=== PATIENT | male | born 1970 | race Caucasian/White ===

== ENCOUNTER 2019-01-30 22:02 | Emergency (ER) | payer BC ==
[~2019-01-30] VITALS: Ht 172.7 cm; Wt 81.8 kg
[2019-01-30] MEDS ORDERED: ATOR1TAB21 (22:18)
[2019-01-30] MEDS ORDERED: TETRACAINE 0.5% OPHTH SOLN 4ML OU ONE (23:00)
[2019-01-30] MEDS ORDERED: ADACEL/BOOSTRIX VACCINE (DIPHTH/PERTUSS/ACELL/TETANUS)0.5ML SYR (90715) IM ONE (23:00)
[2019-01-30] MEDS ORDERED: FLUORESCEIN OPHTH 1 MG STRIP OU ONE (23:00)
[2019-01-31] MEDS ORDERED: TOBRSUS41 OU (00:14)
[2019-01-31] MEDS ORDERED: TOBRADEX OPHTH SUSP 2.5 ML OU ONE (00:30)
[2019-01-31 00:46] VITALS: BP 134/87
== END 2019-01-31 00:42 | disposition home or self-care (01) ==
LOC: M ED 22:02
DX: H16.8 Other keratitis (principal); S05.00XA Injury of conjunctiva and corneal abrasion without foreign body, unspecified eye, initial encounter; X58.XXXA Exposure to other specified factors, initial encounter; Y92.89 Other specified places as the place of occurrence of the external cause; E78.5 Hyperlipidemia, unspecified; Z87.891 Personal history of nicotine dependence

== ENCOUNTER → 2019-02-28 | Outpatient (CLI) | payer BC ==
[~2019-02-28] MED LIST: ATOR1TAB21; TOBRSUS41 OU
[2019-02-28 13:27] LABS: ALBUMIN 4.1 GM/DL (3.2-5.2); BILIRUBIN,DIRECT 0.2 MG/DL (0.0-0.2); BILIRUBIN,TOTAL 0.7 MG/DL (0.2-1.0); TOTAL PROTEIN 7.5 GM/DL (6.4-8.2)
== END ==
LOC: M WUC 08:31
DX: B35.1 Tinea unguium (principal)

== ENCOUNTER → 2021-10-27 | Outpatient (CLI) | payer BC ==
[2021-10-27 16:19] LABS: BASO % 0.7 % (0.0-1.0); EOS # 0.2 10^3/uL (0.0-0.5); EOS % 3.3 % (0.0-3.0); HEMATOCRIT 42.1 % (42.0-52.0); HEMOGLOBIN 13.9 g/dl (13.5-17.5); LYMPH # 1.7 10^3/uL (1.5-5.0); MEAN CORPUSCULAR HEMOGLOBIN 28.5 pg (27.0-33.0); MEAN CORPUSCULAR VOLUME 86.4 fl (80.0-96.0); MONO # 0.7 10^3/uL (0.0-0.8); MONO % 12.4 % (2.0-8.0); NEUTROPHILS # 2.8 10^3/uL (1.5-8.5); NEUTROPHILS % 51.2 % (36.0-66.0); PLATELET COUNT, AUTOMATED 272 10^3/uL (150-450); RED BLOOD COUNT 4.87 10^6/uL (4.30-6.10); WHITE BLOOD COUNT 5.4 10^3/uL (4.0-10.0)
[2021-10-27 16:41] LABS: ALBUMIN 4.3 GM/DL (3.2-5.2); BILIRUBIN,DIRECT 0.2 MG/DL (0.0-0.2); BILIRUBIN,TOTAL 0.7 MG/DL (0.2-1.0); CALCIUM LEVEL 9.1 MG/DL (8.5-10.1); CREATININE FOR GFR 1.48 MG/DL (0.70-1.30); PHOSPHORUS LEVEL 3.7 MG/DL (2.5-4.9); POTASSIUM SERUM 4.2 MEQ/L (3.5-5.1); TOTAL PROTEIN 7.3 GM/DL (6.4-8.2)
== END ==
LOC: M WUC 13:55
PROVIDERS: ATTEND Podiatrist Foot & Ankle Surgery
DX: B35.1 Tinea unguium (principal); Z79.899 Other long term (current) drug therapy

== ENCOUNTER → 2021-11-13 | Outpatient (CLI) | payer BC | LOC: M WUC 11:49 | PROVIDERS: ATTEND Physician Assistant | DX: M25.512 Pain in left shoulder (principal) ==

== ENCOUNTER → 2022-09-06 | Outpatient (CLI) | payer BC ==
[2022-09-06 16:21] LABS: BASO # 0.1 10^3/uL (0.0-0.2); EOS # 0.2 10^3/uL (0.0-0.5); HEMATOCRIT 43.3 % (42.0-52.0); HEMOGLOBIN 14.3 g/dl (13.5-17.5); LYMPH # 1.8 10^3/uL (1.5-5.0); LYMPH % 28.3 % (24.0-44.0); MEAN CORPUSCULAR HEMOGLOBIN 28.5 pg (27.0-33.0); MEAN CORPUSCULAR VOLUME 86.3 fl (80.0-96.0); MONO # 0.6 10^3/uL (0.0-0.8); MONO % 9.4 % (2.0-8.0); NEUTROPHILS # 3.7 10^3/uL (1.5-8.5); PLATELET COUNT, AUTOMATED 334 10^3/uL (150-450); RED BLOOD COUNT 5.02 10^6/uL (4.30-6.10); WHITE BLOOD COUNT 6.3 10^3/uL (4.0-10.0)
[2022-09-06 16:38] LABS: ALBUMIN 4.5 G/DL (3.2-5.2); ALKALINE PHOSPHATASE 80 U/L (46-116); ALT/SGPT 42 U/L (7.0-40); AST/SGOT 26 U/L (<34); BILIRUBIN,DIRECT 0.2 MG/DL (<0.4); BILIRUBIN,TOTAL 0.6 MG/DL (0.3-1.2); TOTAL PROTEIN 7.4 G/DL (5.7-8.2)
[2022-09-07 08:32] LABS: BLOOD UREA NITROGEN 23 MG/DL (9-23); CALCIUM LEVEL 9.1 MG/DL (8.5-10.1); CARBON DIOXIDE LEVEL 29 MMOL/L (20-31); CHLORIDE LEVEL 102 MMOL/L (98-107); CREATININE FOR GFR 1.26 MG/DL (0.70-1.30); GLOMERULAR FILTRATION RATE > 60.0 (>60); GLUCOSE, FASTING 92 MG/DL (60-100); PHOSPHORUS LEVEL 4.3 MG/DL (2.5-4.9); POTASSIUM SERUM 4.7 MMOL/L (3.5-5.1); SODIUM LEVEL 141 MMOL/L (136-145)
== END ==
LOC: M WUC 14:52
PROVIDERS: ATTEND Podiatrist Foot & Ankle Surgery
DX: B35.1 Tinea unguium (principal)

== ENCOUNTER 2024-04-12 07:00 | Day surgery (SDC) | payer BC ==
[~2024-04-12] VITALS: Ht 172.7 cm; Wt 83.8 kg
[~2024-04-12 07:00] MED LIST changes: +ATOR40TA75 PO; +SUPETAB PO
[2024-04-12] MEDS: NS 1,000 ML IV ONE (07:18)
[2024-04-12] MEDS ORDERED: propofoL 200 MG/20 ML VIAL As Ordered ONE (08:01)
[2024-04-12 08:13] VITALS: TEMP 97.8
[2024-04-12 08:30] VITALS: BP 138/87; O2SAT 98
== END 2024-04-12 08:41 | disposition home or self-care (01) ==
LOC: M OPP 07:00
PROVIDERS: ATTEND Surgery
DX: Z12.11 Encounter for screening for malignant neoplasm of colon (principal); D12.6 Benign neoplasm of colon, unspecified; G47.33 Obstructive sleep apnea (adult) (pediatric); Z87.891 Personal history of nicotine dependence; Z79.02 Long term (current) use of antithrombotics/antiplatelets; Z79.1 Long term (current) use of non-steroidal anti-inflammatories (NSAID)

== ENCOUNTER 2025-01-03 05:42 | Inpatient (IN) | payer BC ==
[~2025-01-03] VITALS: Ht 172.7 cm; Wt 85.5 kg
[2025-01-03] MEDS: KETOROLAC 30 MG/ML 1ML VIAL IV ONE (07:02)
[2025-01-03 12:38] LABS: BASO % 1.1 % (0.0-1.0); EOS # 0.1 10^3/uL (0.0-0.5); EOS % 3.4 % (0.0-3.0); HEMATOCRIT 42.4 % (42.0-52.0); HEMOGLOBIN 14.3 g/dl (13.5-17.5); LYMPH # 1.2 10^3/uL (1.5-5.0); LYMPH % 34.4 % (24.0-44.0); MEAN CORPUSCULAR HEMOGLOBIN 28.9 pg (27.0-33.0); MEAN CORPUSCULAR HGB CONC 33.7 g/dl (32.0-36.5); MEAN CORPUSCULAR VOLUME 85.7 fl (80.0-96.0); MONO # 0.3 10^3/uL (0.0-0.8); MONO % 8.7 % (2.0-8.0); NEUTROPHILS # 1.9 10^3/uL (1.5-8.5); NEUTROPHILS % 52.4 % (36.0-66.0); PLATELET COUNT, AUTOMATED 269 10^3/uL (150-450); RED BLOOD COUNT 4.95 10^6/uL (4.30-6.10); WHITE BLOOD COUNT 3.6 10^3/uL (4.0-10.0)
[2025-01-03 12:50] LABS: INR 0.94; PARTIAL THROMBOPLASTIN TIME 26.9 SECONDS (24.8-34.2); PROTHROMBIN TIME 12.9 SECONDS (12.5-14.5)
[2025-01-03 13:09] LABS: CREATININE FOR GFR 1.33 MG/DL (0.70-1.30); GLOMERULAR FILTRATION RATE 64.3 (>56); POTASSIUM SERUM 5.3 MMOL/L (3.5-5.1)
[2025-01-03] MEDS ORDERED: HOME MED LIST COMPLETE! XX SCH (14:15)
[2025-01-03] MEDS ORDERED: NS (Normal Saline) 0.9% 1,000 ML IV SCH (14:30)
[2025-01-03] MEDS ORDERED: MORPHINE 2 MG/ML 1ML VIAL IV PRN (14:35)
[2025-01-03] MEDS ORDERED: tiZANidine 4 MG TAB PO PRN (14:40)
[2025-01-03] MEDS ORDERED: NALOXONE INJ 0.4MG/1ML VIAL IV PRN (14:40)
[2025-01-03] MEDS: PERCOCET 5MG/325MG TAB PO PRN (15:21)
[2025-01-03] MEDS: tiZANidine 4 MG TAB PO ONE (15:22)
[2025-01-03] MEDS: PATIROMER SORBITEX CALCIUM 8.4 GM POWDER PACKET (VELTASSA) PO ONE (15:22)
[2025-01-03] MEDS: LR 1,000 ML IV ONE (15:22)
[2025-01-03] MEDS: PERCOCET 5MG/325MG TAB PO ONE (15:22)
[2025-01-03 15:45] LABS: APPEARANCE, URINE HAZY (CLEAR); BACTERIA, URINE AUTO NEGATIVE (NEGATIVE); BILIRUBIN, URINE AUTO NEGATIVE (NEGATIVE); BLOOD, URINE BLOOD NEGATIVE (NEGATIVE); COLOR, URINE YELLOW (YELLOW); GLUCOSE, URINE (UA) AUTO NEGATIVE (NEGATIVE); KETONE, URINE AUTO NEGATIVE (NEGATIVE); LEUKOCYTE ESTERASE, URINE AUTO NEGATIVE (NEGATIVE); MUCUS, URINE SMALL (NEGATIVE); NITRITE, URINE AUTO NEGATIVE (NEGATIVE); PROTEIN, URINE AUTO NEGATIVE (NEGATIVE); RBC, URINE AUTO 0 /HPF (0-3); SPECIFIC GRAVITY URINE AUTO 1.025 (1.002-1.035); SQUAMOUS EPITHELIAL CELL UR AU 0 /HPF (0-6); UROBILINOGEN, URINE AUTO 0.2 mg/dL (0.0-2.0); WBC, URINE AUTO 1 /HPF (0-3)
[2025-01-03] MEDS: HYDROMORPHONE HCL 0.5 MG/ 0.5 ML SYRINGE IV ONE (18:13)
[2025-01-03 21:49] LABS: CALCIUM LEVEL 9.1 MG/DL (8.5-10.1); CREATININE FOR GFR 1.4 MG/DL (0.70-1.30); GLOMERULAR FILTRATION RATE 60.5 (>56); POTASSIUM SERUM 4.2 MMOL/L (3.5-5.1)
[2025-01-03] MEDS: HYDROMORPHONE HCL 0.5 MG/ 0.5 ML SYRINGE IV PRN (21:55)
[2025-01-03 23:51] VITALS: BP 164/80; TEMP 98.1; O2SAT 99
[2025-01-04] VITALS (7 sets, daily range): BP systolic 132–150; BP diastolic 71–83; TEMP 97.3–97.7; O2SAT 94–98
[2025-01-04] MEDS: NS (Normal Saline) 0.9% 1,000 ML IV SCH (00:54)
[2025-01-04] MEDS: NS (Normal Saline) 0.9% 1,000 ML IV ONE (06:29)
[2025-01-04] MEDS: HYDROMORPHONE HCL 0.5 MG/ 0.5 ML SYRINGE IV ONE (06:30)
[2025-01-04] MEDS ORDERED: HYDROmorphone HCL 2MG/ML 1ML VIAL As Ordered ONE (07:07)
[2025-01-04] MEDS ORDERED: KETAMINE HCL 200MG/20ML VIAL As Ordered ONE (07:07)
[2025-01-04] MEDS ORDERED: MIDAZOLAM INJ 2MG/2ML VIAL As Ordered ONE (07:08)
[2025-01-04] MEDS ORDERED: fentaNYL 100 MCG/2 ML INJECTION As Ordered ONE (07:08)
[2025-01-04] MEDS ORDERED: GLYCOPYRROLATE INJ 0.2 MG/ML 2 ML VIAL As Ordered ONE (07:14)
[2025-01-04] MEDS ORDERED: ROCURONIUM BROMIDE 50MG/5ML VIAL As Ordered ONE (07:14)
[2025-01-04] MEDS ORDERED: SUGAMMADEX SODIUM 500 MG/5 ML VIAL (BRIDION) As Ordered ONE (07:14)
[2025-01-04] MEDS ORDERED: propofoL 200 MG/20 ML VIAL As Ordered ONE (07:14)
[2025-01-04] MEDS ORDERED: LIDOCAINE 2% 100MG/5ML SDV (FOR ANES.) As Ordered ONE (07:14)
[2025-01-04] MEDS ORDERED: ONDANSETRON 4MG 2ML VIAL As Ordered ONE (07:19)
[2025-01-04] MEDS: ceFAZolin SODIUM 2 GM VIAL As Ordered ONE (10:15)
[2025-01-04] MEDS ORDERED: ACETAMINOPHEN 1000MG/100ML IV BAG As Ordered ONE (10:33)
[2025-01-04] MEDS ORDERED: ESMOLOL INJ 100MG/10ML VIAL As Ordered ONE (10:45)
[2025-01-04] MEDS ORDERED: PHENYLephrine 500MCG 5ML (100MCG/ML) SYRINGE As Ordered ONE (10:58)
[2025-01-04] MEDS: LIDOCAINE W/EPINEPHRINE 1% 20ML VIAL As Ordered ONE (11:03)
[2025-01-04] MEDS: methylPREDNISolone SUSP 40MG/ML 1ML VIAL (DEPO MEDROL) As Ordered ONE (12:45)
[2025-01-04] MEDS ORDERED: fentaNYL 100 MCG/2 ML INJECTION IV PRN (13:25)
[2025-01-04] MEDS: ONDANSETRON 4MG 2ML VIAL IV PRN (13:58)
[2025-01-04] MEDS: MORPHINE 2 MG/ML 1ML VIAL IV PRN (13:59)
[2025-01-04] MEDS: oxyCODONE 5MG TAB PO PRN ×3 (14:02→22:30)
[2025-01-04] MEDS ORDERED: ACETAMINOPHEN 325 MG TAB PO PRN (14:35)
[2025-01-04] MEDS ORDERED: ONDANSETRON 4MG TAB PO PRN (14:35)
[2025-01-04] MEDS ORDERED: MOM 30ML SUSPENSION UDC PO PRN (14:35)
[2025-01-04] MEDS ORDERED: hydrALAZINE 20MG/ML 1ML VIAL IV PRN (14:35)
[2025-01-04] MEDS ORDERED: METOPROLOL 5 MG/5 ML VIAL IV PRN (14:35)
[2025-01-04 15:14] LABS: BASO % 0.1 % (0.0-1.0); EOS % 0.1 % (0.0-3.0); HEMATOCRIT 38.3 % (42.0-52.0); HEMOGLOBIN 13.3 g/dl (13.5-17.5); LYMPH # 0.3 10^3/uL (1.5-5.0); LYMPH % 4.2 % (24.0-44.0); MEAN CORPUSCULAR HEMOGLOBIN 29.1 pg (27.0-33.0); MEAN CORPUSCULAR HGB CONC 34.7 g/dl (32.0-36.5); MEAN CORPUSCULAR VOLUME 83.8 fl (80.0-96.0); MONO # 0.1 10^3/uL (0.0-0.8); MONO % 0.6 % (2.0-8.0); NEUTROPHILS # 7.6 10^3/uL (1.5-8.5); NEUTROPHILS % 94.8 % (36.0-66.0); PLATELET COUNT, AUTOMATED 244 10^3/uL (150-450); RED BLOOD COUNT 4.57 10^6/uL (4.30-6.10); WHITE BLOOD COUNT 8.1 10^3/uL (4.0-10.0)
[2025-01-04 15:34] LABS: CALCIUM LEVEL 8.2 MG/DL (8.5-10.1); CREATININE FOR GFR 1.25 MG/DL (0.70-1.30); GLOMERULAR FILTRATION RATE 69.3 (>56); POTASSIUM SERUM 4.3 MMOL/L (3.5-5.1)
[2025-01-04] MEDS: GABAPENTIN 300 MG CAP PO SCH (16:21)
[2025-01-04] MEDS ORDERED: TIZA10TA PO (16:35)
[2025-01-04] MEDS ORDERED: OXYC-517 PO (16:35)
[2025-01-04] MEDS ORDERED: MOM30SS2 PO (16:35)
[2025-01-04] MEDS ORDERED: GABA-1172 PO (16:35)
[2025-01-04] MEDS ORDERED: COLA100C5 PO (16:35)
[2025-01-04] MEDS: ceFAZolin SODIUM 2 GM in DEXTROSE 5% (D5W) ADV/MINI-BAG 50 ML IV SCH (18:04)
[2025-01-04] MEDS: DOCUSATE SODIUM 100MG CAPSULE PO SCH (20:08)
[2025-01-04] MEDS: SENNA 8.6 MG TAB (SENOKOT) PO SCH (20:08)
[2025-01-05 04:00] VITALS: BP 125/60; TEMP 97.9; O2SAT 97
[2025-01-05] MEDS ORDERED: ONDA-282 PO (08:03)
[2025-01-05] MEDS ORDERED: SENO8.6T10 PO (08:04)
[2025-01-05] MEDS ORDERED: ACET-683 PO (08:05)
[2025-01-05] MEDS: ENOXAPARIN 40MG/0.4ML SYRINGE (J1650 PER 10MG) SC SCH (08:45)
[2025-01-05 08:48] VITALS: BP 179/85; TEMP 97.7; O2SAT 96
== END 2025-01-05 13:20 | disposition home or self-care (01) | DRG 310 ==
LOC: M ED 05:42 → M ED INP 14:35 → M MS5PR 21:05
PROVIDERS: ADMIT General Practice; ATTEND General Practice
PROC: 0SB40ZZ Excision of Lumbosacral Disc, Open Approach (ICD-10-PCS; 2025-01-04)
PROC: 0SN00ZZ Release Lumbar Vertebral Joint, Open Approach (ICD-10-PCS; principal; 2025-01-04 09:15)
DX: M51.27 Other intervertebral disc displacement, lumbosacral region (principal); E87.5 Hyperkalemia; E78.5 Hyperlipidemia, unspecified; G47.33 Obstructive sleep apnea (adult) (pediatric); M21.372 Foot drop, left foot; N18.2 Chronic kidney disease, stage 2 (mild); Z79.899 Other long term (current) drug therapy